=== PATIENT | male | born 2000 | race Caucasian/White ===

== ENCOUNTER 2025-04-25 20:58 | Emergency (ER) | payer SELFPAY ==
[2025-04-25 21:02] VITALS: BP 150/84; PULSE 106; RESP 22; TEMP 37; O2SAT 98; BMI 34.0
--- NOTE | 2025-04-25 21:09 | EKG_ITS ---
[facility] Test Date: 2025-04-25 Pat Name: JARRED OCONNOR Department: Room: - Gender: Male Continuous Improvement Black Belt: : 2000 Requested By: ED Temporary Provider Order Number: [id number] Reading MD: ED Temporary Provider Measurements Intervals [place] Rate: 105 P: 51 AK: 134 QRS: 82 QRSD: 102 T: 7 QT: 323 QTc: 427 Interpretive Statements SINUS TACHYCARDIA ABNORMAL RHYTHM ECG No previous ECG available for comparison /store/S0/[id number].pdf
--- NOTE | 2025-04-25 21:25 | PD.EDRECHK ---
ED Recheck Abnl Lab Rx-RME/HPI General Chief Complaint: General Adult/Misc Complain Stated Complaint: ADVERS MED REACTION IM STERROID Time Seen by Provider: 04/25/25 21:29 Arrival date/time: 04/25/25 20:58 RME / HPI RME / HPI narrative: This section includes all my notes and documentations, including HPI, PE, and ED course. 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 No other complaints. ROS: All negative except as documented in HPI. Physical Exam: General: Alert and oriented. Severely anxious. Eyes: Conjunctivae and lids clear. ENT: No nasal congestion. Neck: Supple. Heart: Sinus tachycardia noted. Lungs: No respiratory distress. Good air movement. No rhonchi, wheezing, rales. Skin: Warm and dry. Neuro: Alert and oriented X 3. I reviewed all diagnostic test results. My interpretation of the EKG is sinus tachycardia with nonspecific ST-T changes. My interpretation of the chest x-ray is NAD. Blood tests are unremarkable, including negative troponin/D-dimer/BNP. At this point, diagnoses include palpitations due to steroid. Treatment here included Xanax. Significant improvement noted. Recommended discontinuing steroid injections. Based on my best medical judgment, made decision no further evaluation or treatment indicated at this time. Patient understands and agrees to the discharge instructions customized and printed, see below. Discharge instructions from Dr. Patel: 1. After extensive evaluation, there is no life-threatening condition. Such as heart attack or pulmonary embolism (blood clots in your lungs) or pneumothorax (collapsed lung). 2. Your symptoms probably due to steroids. 3. Avoid illegal steroids. 4. See a private doctor on 04/26/2025 if not completely better. To make sure there is no serious underlying heart condition, ask to help you get more tests for your heart that cannot be done here in the ER. Such as Holter Monitor (cardiac monitoring at home from a day to even a month), heart stress test (on treadmill or with medication), echocardiogram (imaging of your heart structures), heart catherization (checking for blockages in your heart arteries), and a referral to see a [employer]. 5. Seek immediate medical care with worsening or with any concerns. Luis Patel MD Related Data Previous Rx's ?Medication ?Instructions ?Recorded prednisone 50 mg tablet 50 mg PO QDAY #5 tabs 03/14/24 alprazolam 0.5 mg tablet (Xanax) 0.5 mg PO BID PRN anxiety #10 tabs 04/25/25 Allergies Allergy/AdvReac Type Severity Reaction Status Date / Time No Known Allergies Allergy Verified 04/25/25 21:08 Review of Systems Review of Systems Systems Reviewed: All systems reviewed, normal except as documented Past Medical History Social History SMOKING STATUS: Current every day smoker ED Exam Narrative Physical exam: As noted in HPI. Course Quality Measures none Orders Category Date Time Status EKG (ED ONLY) *Do not use* NOW Care 04/25/25 21:09 Completed EKG (ED Only) Stat Exams 04/25/25 21:09 Draft XR chest 1V portable Stat Exams 04/25/25 21:30 Completed BMP [Basic Metabolic Panel] Stat Lab 04/25/25 21:43 Completed BNP [B-Type Natriuretic Peptide] Stat Lab 04/25/25 21:43 Received CBC Stat Lab 04/25/25 21:43 Completed D-Dimer Stat Lab 04/25/25 21:43 Completed Magnesium Stat Lab 04/25/25 21:43 Completed Troponin I Stat Lab 04/25/25 21:43 Completed ALPRazoLAM [Xanax] Med 04/25/25 21:29 Discontinued 0.75 mg PO X1 ONE Vital Signs Vital signs: Vital Signs Temperature 98.6 F 04/25/25 21:02 Pulse Rate 106 H 04/25/25 21:02 Respiratory Rate 22 H 04/25/25 21:02 Blood Pressure 150/84 H 04/25/25 21:02 Pulse Oximetry (%) 98 04/25/25 21:02 Oxygen Delivery Method Room Air 04/25/25 21:02 Recheck / Abnormal Lab / Rx MDM Narrative MDM Narrative:: 24yo male here with chest pain, palpitations, and 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 After injecting himself with IM steroid. No other complaints. Patient data External records reviewed:: [facility] previous records (Per chart review, patient has no relevant previous ED visits.) Clinical information provided by:: patient Social determinants that could affect healthcare access:: none Patient has the following chronic illnesses:: none How is presenting disease/condition affected by chronic disease/condition?: no chronic disease Evaluation data The following diagnostics were reviewed and interpreted by me:: lab results, radiology exam(s) and EKG tracing(s) (My interpretation of the EKG is: Sinus rhythm (105 bpm) with nonspecific ST-T changes. Luis Patel MD) Lab and/or radiology exams considered but not ordered:: none Interpretation Summary: I reviewed all diagnostic test results. My interpretation of the EKG is sinus tachycardia with nonspecific ST-T changes. My interpretation of the chest x-ray is NAD. Blood tests are unremarkable, including negative troponin/D-dimer/BNP. Medications / Prescriptions Medications or Prescriptions considered but not ordered:: none Medication administrations:: Medication Administration History Discontinued Medications Alprazolam (Alprazolam 0.25 Mg Tablet) 0.75 mg PO X1 ONE Stop: 04/25/25 21:30 Last Admin: 04/25/25 21:46 Dose: 0.75 mg Documented By: EF Xanax Consultations Consultation(s) initiated? (list below): No Diagnosis Recheck Differential Diagnosis: other (AR, PE, CHF, pneumonia, anxiety) Most likely diagnosis given after review of the tests above:: Palpitations due to steroid. Admission Indicated Admission indicated?: not indicated Explain why admission is indicated or not indicated:: With significant improvement and no condition needing emergent intervention, there was no indication for admission. Admission Request Was there a request for admission?: No Disposition Plan Disposition Plan: Discharge Discharge Attestation Discharge Attestation: The patient and all family members were given an opportunity to ask questions and understood the discharge instructions. Discharge instructions specifically effects, indications for sooner follow up or return to the emergency department, and the expected course of current diagnosis. Patient condition: Stable Discharge Plan Plan Patient Disposition: HOME (Self Care) Prescriptions/Referrals Prescriptions/Med Rec: New alprazolam [Xanax] 0.5 mg tablet 0.5 mg PO BID PRN (Reason: anxiety) Qty: 10 0RF No Action prednisone 50 mg tablet 50 mg PO QDAY Qty: 5 0RF Referrals: No Primary/Family,Physician [Primary Care Provider] - In 1 week Problem List Clinical Impression: Palpitations Patient/Caregiver Discharge Instructions Discharge Activity: activity as tolerated Education Materials: ED Palpitations Additional Instructions: Discharge instructions from Dr. Patel: 1. After extensive evaluation, there is no life-threatening condition.? Such as heart attack or pulmonary embolism (blood clots in your lungs) or pneumothorax (collapsed lung). 2. Your symptoms probably due to steroids. 3. Avoid illegal steroids. 4. See a private doctor on 04/26/2025 if not completely better. To make sure there is no serious underlying heart condition, ask to help you get more tests for your heart that cannot be done here in the ER.? Such as Holter Monitor (cardiac monitoring at home from a day to even a month), heart stress test (on treadmill or with medication), echocardiogram (imaging of your heart structures), heart catherization (checking for blockages in your heart arteries), and a referral to see a [employer]. 5. Seek immediate medical care with worsening or with any concerns.?? Print Language: Chinese Stand Alone Forms: Theresa Award Info., Patient Portal Info Letter
--- NOTE | 2025-04-25 21:30 | XR_ITS ---
Examination: PA chest single view TECHNIQUE: Upright PA chest single view Date and time: April 25, 2025 2137 hours INDICATIONS: Shortness of breath today. FINDINGS: Normal heart size. Lungs are clear. The osseous structures are intact IMPRESSION: No active disease.
[2025-04-25 21:51] LABS: Basophils # (Auto) 0.1 Thou/mm3 (0.0-0.2); Basophils % (Auto) 1 % (0-2.5); Eosinophils # (Auto) 0.3 Thou/mm3 (0.0-0.5); Eosinophils % (Auto) 4 % (0-10); Hematocrit 47.3 % (41.0-53.0); Hemoglobin 17.5 g/dL (13.5-16.0); Immature Granulocytes Auto 0.01 Thou/mm3 (0.00-0.00); Lymphocytes # (Auto) 1.8 Thou/mm3 (1.0-4.8); Lymphocytes % (Auto) 22 % (10-50); Mean Corpuscular HGB Conc 37.0 g/dl (31.0-37.0); Mean Corpuscular Hemoglobin 31.1 pg (25.0-35.0); Mean Corpuscular Volume 84 fL (80-100); Monocytes # (Auto) 0.7 Thou/mm3 (0.0-0.8); Monocytes % (Auto) 8 % (0-12); Neutrophils # (Auto) 5.1 Thou/mm3 (1.8-7.7); Neutrophils % (Auto) 65 % (37-80); Nucleated Red Blood Cell # 0.00 Thou/mm3 (0.00-0.00); Nucleated Red Blood Cell % 0 /100 WBC (0); Platelet Count 237 Thou/mm3 (140-440); RDW Standard Deviation 37.6 fL (35.1-43.9); Red Blood Count 5.63 Miln/mm3 (4.50-5.90); White Blood Count 7.9 Thou/mm3 (3.8-10.6)
[2025-04-25 22:13] LABS: Anion Gap 9 (7-16); BUN/Creatinine Ratio 9 Ratio (12-20); Blood Urea Nitrogen 12 mg/dL (9-23); Calcium 10.0 mg/dL (8.3-10.6); Carbon Dioxide 26.8 mMol/L (20.0-31.0); Chloride 104 mMol/L (98-107); Creatinine (Component) 1.4 mg/dL (0.6-1.3); Estimated Creatinine Clearance 117.4 mL/min (>60); Glucose 94 mg/dL (74-106); Magnesium 2.1 mg/dL (1.6-2.6); Osmolality,Calculated 279 (275-295); Potassium 4.4 mMol/L (3.4-5.1); Sodium 140 mMol/L (136-145); Troponin I < 0.020 ng/mL (0.0-0.045); eGFR > 60 See Note
[2025-04-25 23:11] LABS: D-Dimer 277 ng/mL (<600)
[2025-04-26 00:06] LABS: B-Type Natriuretic Peptide < 20 pg/mL (0-100)
== END 2025-04-25 23:26 | disposition home or self-care (01) ==
PROVIDERS: Emergency Provider Emergency Medicine
DX: R00.2 Palpitations (principal); R06.02 Shortness of breath; R00.0 Tachycardia, unspecified
CPT/HCPCS: 36415; 71045; 80048; 83735; 83880; 84484; 85025; 85379; 93005; 99283; A9270

== ENCOUNTER 2025-06-02 01:51 | Emergency (ER) | payer SELFPAY ==
[2025-06-02 01:51] VITALS: BMI 35.3
--- NOTE | 2025-06-02 02:22 | EKG_ITS ---
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
[2025-06-02 02:36] VITALS: BP 123/75; PULSE 81; RESP 18; TEMP 36.8; O2SAT 98
--- NOTE | 2025-06-02 02:48 | XR_ITS ---
Examination: CT abdomen and pelvis without contrast. Coronal 3-D reconstructions. Sagittal 2-D reconstructions. Date and time of exam: June 02, 2025, 0404 hours INDICATIONS: Abdominal pain and flank pain beginning 2 hours ago, history kidney stones. CTDI: vol (mGy): 12.11 DLP: (mGycm): 817 Technique: Axial images of the abdomen have been obtained, 3 mm slice thickness Intravenous contrast material has not been administered. Low dose protocols were performed. One or more of the following dose reduction techniques were used; automated exposure control, adjustment of the mA and/or KV according to patient size, use of iterative reconstruction technique. Findings: No focal liver or splenic lesions No gallstones No pancreatic edema Moderate renal scarring Minimal left hydronephrosis 5 mm proximal left ureteral calculus Aorta normal size. Normal appendix Contracted urinary bladder Intact osseous structures IMPRESSION: Minimal left hydronephrosis, 5 mm proximal left ureteral calculus
--- NOTE | 2025-06-02 02:49 | PD.EDRME ---
Rapid Medical Screening Exam RME Arrival date/time: 06/02/25 01:51 This is a case of 24-year-old male who came in in the emergency room due to left-sided abdominal pain radiating to the left flank with shortness of breath for 2 days worsening symptoms this patient decided to sought consult here in the emergency room Chief Complaint: Abdominal Pain Time Seen by Provider: 06/02/25 02:48 Vital signs: Vital Signs Temperature 98.2 F 06/02/25 02:36 Pulse Rate 81 06/02/25 02:36 Respiratory Rate 18 06/02/25 02:36 Blood Pressure 123/75 06/02/25 02:36 Pulse Oximetry (%) 98 06/02/25 02:36 Oxygen Delivery Method Room Air 06/02/25 02:36
[2025-06-02] MEDS: KETOROLAC INJ 60 MG/2 ML VIAL 30 MG IM (03:06)
[2025-06-02] MEDS: HYDROcodone/APAP 5/325 TABLET 1 TAB PO (03:07)
[2025-06-02 03:14] LABS: Basophils # (Auto) 0.1 Thou/mm3 (0.0-0.2); Basophils % (Auto) 1 % (0-2.5); Eosinophils # (Auto) 0.1 Thou/mm3 (0.0-0.5); Eosinophils % (Auto) 2 % (0-10); Hematocrit 47.2 % (41.0-53.0); Hemoglobin 16.9 g/dL (13.5-16.0); Immature Granulocytes Auto 0.03 Thou/mm3 (0.00-0.00); Lymphocytes # (Auto) 1.6 Thou/mm3 (1.0-4.8); Lymphocytes % (Auto) 19 % (10-50); Mean Corpuscular HGB Conc 35.8 g/dl (31.0-37.0); Mean Corpuscular Hemoglobin 30.0 pg (25.0-35.0); Mean Corpuscular Volume 84 fL (80-100); Monocytes # (Auto) 0.5 Thou/mm3 (0.0-0.8); Monocytes % (Auto) 6 % (0-12); Neutrophils # (Auto) 5.9 Thou/mm3 (1.8-7.7); Neutrophils % (Auto) 72 % (37-80); Nucleated Red Blood Cell # 0.00 Thou/mm3 (0.00-0.00); Nucleated Red Blood Cell % 0 /100 WBC (0); Platelet Count 203 Thou/mm3 (140-440); RDW Standard Deviation 35.8 fL (35.1-43.9); Red Blood Count 5.64 Miln/mm3 (4.50-5.90); White Blood Count 8.2 Thou/mm3 (3.8-10.6)
[2025-06-02] MEDS: ONDANSETRON ODT 4 MG TABRAP PO (03:27)
[2025-06-02 03:33] LABS: B-Type Natriuretic Peptide < 20 pg/mL (0-100)
[2025-06-02 03:36] LABS: Alanine Aminotransferase 47 U/L (10-49); Albumin, Serum 4.8 gm/dL (3.5-5.0); Albumin/Globulin Ratio 2.2 (1.2-2.2); Alkaline Phosphatase 68 U/L (46-116); Anion Gap 13 (7-16); Aspartate Amino Transferase 19 U/L (0-34); BUN/Creatinine Ratio 11 Ratio (12-20); Bilirubin,Total 0.9 mg/dL (0.3-1.2); Blood Urea Nitrogen 14 mg/dL (9-23); Calcium 10.3 mg/dL (8.3-10.6); Calcium (Corrected) 10.3 mg/dL (8.5-10.1); Carbon Dioxide 23.8 mMol/L (20.0-31.0); Chloride 103 mMol/L (98-107); Creatinine (Component) 1.3 mg/dL (0.6-1.3); Estimated Creatinine Clearance 128.6 mL/min (>60); Globulin 2.2 gm/dL (2.3-3.5); Glucose 119 mg/dL (74-106); Lipase 33 U/L (12-53); Osmolality,Calculated 280 (275-295); Potassium 3.8 mMol/L (3.4-5.1); Sodium 140 mMol/L (136-145); Total Protein 7.0 gm/dL (5.7-8.2); Troponin I < 0.020 ng/mL (0.0-0.045); eGFR > 60 See Note
[2025-06-02 04:42] LABS: Collection Type, Urine Clean Catch
[2025-06-02 04:48] LABS: Bilirubin,Urine Negative (Negative); Blood,Urine 3+ (Negative); Calcium Oxalate Crystals,Urine 2+; Clarity,Urine Turbid (Clear/Hazy); Glucose, Urine Negative (Negative); Ketones,Urine 1+ (Negative); Leukocyte Esterase,Urine Positive (Negative); Nitrite,Urine Negative (Negative); PH,Urine 6.0 (5.0-7.0); Protein,Urine 2+ (Neg - Trace); RBC,Urine 638 /hpf (0-3); Specific Gravity,Urine 1.032 (1.001-1.035); Squamous Epithelial Cell,Urine < 1 /hpf (0-5); Urobilinogen,Urine Negative mg/dL (0.0-1.0); WBC,Urine 23 /hpf (0-5)
--- NOTE | 2025-06-02 04:59 | PRELIM_ITS ---
CT scan of the abdomen and pelvis without intravenous contrast (axial sections with sagittal and coronal reformats) June 02, 2025 0404 hours Clinical History: Kidney stones. Comparison: No prior study is available for comparison. Findings: The lung bases are clear. Liver, gallbladder, spleen, adrenal glands, pancreas and right kidney are unremarkable. Mild left hydroureteronephrosis. 5 mm calculus at the proximal left ureter, (image 121). No renal calculi bilaterally. The appendix is normal, best seen on (image 162). The urinary bladder is decompressed, limiting evaluation. No free intraperitoneal air or fluid. Bowel caliber is normal. The abdominal wall is unremarkable. No acute osseous process. Impression: 5 mm calculus in the proximal left ureter with mild hydroureteronephrosis. Report Electronically Signed By: Janusz Dixon 06/02/2025 4:58:43 AM [EST]
[2025-06-02 05:01] LABS: Color,Urine Lt-Orange (Lt Yel-Yel)
[2025-06-02 05:56] VITALS: BP 137/82; PULSE 66; RESP 20; TEMP 36.9; O2SAT 100
[2025-06-02 07:37] VITALS: BP 129/69; PULSE 67; RESP 18; TEMP 36.7; O2SAT 98
--- NOTE | 2025-06-02 08:15 | EDNOTE_ITS ---
ED Abdominal Pain RME/HPI General Chief Complaint: Abdominal Pain Stated complaint: SOB, ABD PAIN X 2 HOURS Time seen by provider: 06/02/25 02:48 Arrival date/time: 06/02/25 01:51 Limitations: no limitations RME / HPI RME / HPI narrative: 06/02/25 01:51 This is a case of 24-year-old male who came in in the emergency room due to left-sided abdominal pain radiating to the left flank with shortness of breath for 2 days worsening symptoms this patient decided to sought consult here in the emergency room DR. CORNELIUS PARR ED EVALUATION 24 year old male presents to the ED for evaluation of left flank and left sided abdominal pain beginning 2 hours prior to arrival. Described as colicky in sensation, rating as severe. Accompanied by nausea when pain is at its worst. Denies fevers, chills, chest pain, cough, shortness of breath, or urinary symptoms. No other associated symptoms reported. Related Data Previous Rx's ?Medication ?Instructions ?Recorded prednisone 50 mg tablet 50 mg PO QDAY #5 tabs alprazolam 0.5 mg tablet (Xanax) 0.5 mg PO BID PRN anx iety #10 tabs 04/25/25 hydrocodone 5 mg-acetaminophen 325 1 tab PO Q6H PRN pa in #10 tabs 06/02/25 mg tablet ibuprofen 600 mg tablet 600 mg PO Q6H PRN Renal coli c 5 06/02/25 days #20 tabs Allergies Allergy/AdvReac Type Severity Reaction Status Date / Time No Known Allergies Allergy Verified 04/25/25 21:08 Review of Systems Review of Systems Systems Reviewed: All systems reviewed, normal except as documented Past Medical History Past Medical History CARDIAC: Negative Congestive Heart Failure RESPIRATORY: Negative Chronic Obstructive Pulmonary Disease (COPD) GENITOURINARY: Negative Renal Disease ENDOCRINE: Negative Diabetes Mellitus Type 1 or Diabetes Mellitus Type 2 Social History SMOKING STATUS: Never smoker ED Exam General Limitations: Present no limitations General appearance: Present alert and in no apparent distress Head Head exam: Present atraumatic and normocephalic Eye Eye exam: Present normal appearance, PERRL and EOMI ENT ENT exam: Present normal exam, normal oropharynx and mucous membranes moist Neck Neck exam: Present normal inspection, full ROM and trachea midline Chest Chest inspection: Present normal inspection and symmetric chest wall rise Respiratory Respiratory exam: Present normal lung sounds bilaterally Cardiovascular Cardiovascular exam: Present regular rate, normal rhythm and normal heart sounds Abdominal Exam Abdominal exam: Present soft and normal bowel sounds Extremities Exam Extremities exam: Present normal inspection and full ROM Back Exam Back exam: Present CVA tenderness (L) (mild ) Neurological Exam Neurological exam: Present alert, oriented X3 and CN II-XII intact Psychiatric Psychiatric exam: Present normal affect and normal mood Skin Skin exam: Present warm, dry, intact and normal color Course Quality Measures none Orders Category Date Time Status EKG (ED ONLY) *Do not use* NOW Care 06/02/25 02:[address] abdomen pelvis wo con Stat Exams 06/02/25 02:48 Completed EKG (ED Only) Stat Exams 06/02/25 02:22 Draft BNP [B-Type Natriuretic Peptide] Stat Lab 06/02/25 02:54 Completed CBC Stat Lab 06/02/25 02:54 Completed Comprehensive Metabolic Panel Stat Lab 06/02/25 02:54 Completed Lipase Stat Lab 06/02/25 02:54 Completed Troponin I Stat Lab 06/02/25 02:54 Completed Urinalysis Stat Lab 06/02/25 03:46 Completed HYDROcodone*/APAP 5/325 [[place] 5/325] Med 06/02/25 02:48 Discontinued 1 tab PO X1 ONE Ketorolac Inj [Toradol Inj] Med 06/02/25 02:48 Discontinued 30 mg IM X1 ONE Ondansetron Odt [Zofran Odt] Med 06/02/25 03:08 Discontinued 4 mg PO X1 ONE Ondansetron Odt [Zofran Odt] Med 06/02/25 03:18 Discontinued 4 mg PO X1 ONE Vital Signs Vital signs: Vital Signs Temperature 98.2 F 06/02/25 02:36 Pulse Rate 81 06/02/25 02:36 Respiratory Rate 18 06/02/25 02:36 Blood Pressure 123/75 06/02/25 02:36 Pulse Oximetry (%) 98 06/02/25 02:36 Oxygen Delivery Method Room Air 06/02/25 02:36 Pulse ox is 98% on room air which is adequate. Abdominal Pain MDM MDM Narrative MDM Narrative:: Lizbet Rehman am scribing for and in the presence of Dr. Gilbert. Patient data External records reviewed:: [facility] previous records (I reviewed ED visit on 04/25/2025 ) Clinical information provided by:: patient Social determinants that could affect healthcare access:: none Patient has the following chronic illnesses:: None reported How is presenting disease/condition affected by chronic disease/condition?: no chronic disease Evaluation data The following diagnostics were reviewed and interpreted by me:: lab results, radiology exam(s) and EKG tracing(s) Lab and/or radiology exams considered but not ordered:: None Interpretation Summary: Ordering Physician: Edmond Jj Date of Service: 06/02/25 Procedure(s): CT abdomen pelvis wo con Accession Number(s): [id number] cc: Americo Amador MD; Fausto Gaines MD; Edmond Jj~ Examination: CT abdomen and pelvis without contrast. Coronal 3-D reconstructions. Sagittal 2-D reconstructions. Date and time of exam: June 02, 2025, 0404 hours INDICATIONS: Abdominal pain and flank pain beginning 2 hours ago, history kidney stones. CTDI: vol (mGy): 12.11 DLP: (mGycm): 817 Technique: Axial images of the abdomen have been obtained, 3 mm slice thickness Intravenous contrast material has not been administered. Low dose protocols were performed. One or more of the following dose reduction techniques were used; automated exposure control, adjustment of the mA and/or KV according to patient size, use of iterative reconstruction technique. Findings: No focal liver or splenic lesions No gallstones No pancreatic edema Moderate renal scarring Minimal left hydronephrosis 5 mm proximal left ureteral calculus Aorta normal size. Normal appendix Contracted urinary bladder Intact osseous structures IMPRESSION: Minimal left hydronephrosis, 5 mm proximal left ureteral calculus Dictated By: Fausto Gaines MD Signed By: <Electronically signed by Fausto Gaines MD in OV> 06/02/25 0647 Medications / Prescriptions Medications or Prescriptions considered but not ordered:: None Medication administrations:: Medication Administration History Discontinued Medications Hydrocodone Bitart/Acetaminophen (Hydrocodone/Apap 5/325 Tablet) 1 tab PO X1 ONE Stop: 06/02/25 02:49 Last Admin: 06/02/25 03:07 Dose: 1 tab Documented By: CB Ketorolac Tromethamine (Ketorolac Inj 60 Mg/2 Ml Vial) 30 mg IM X1 ONE Stop: 06/02/25 02:49 Last Admin: 06/02/25 03:06 Dose: 30 mg Documented By: MAISHA Ondansetron HCl (Ondansetron Odt 4 Mg Tabrap) 4 mg PO X1 ONE; Protocol Stop: 06/02/25 03:09 Last Admin: 06/02/25 03:29 Dose: Not Given Documented By: MAISHA Non-Admin Reason: Duplicate Medication on eMAR Ondansetron HCl (Ondansetron Odt 4 Mg Tabrap) 4 mg PO X1 ONE; Protocol Stop: 06/02/25 03:19 Last Admin: 06/02/25 03:27 Dose: 4 mg Documented By: MAISHA See above Consultations Consultation(s) initiated? (list below): No Diagnosis Differential diagnosis abdominal pain: abdominal pain, calculus of kidney, gastroenteritis and pancreatitis Most likely diagnosis given after review of the tests above:: Kidney stone Admission Indicated Admission indicated?: not indicated Admission Request Was there a request for admission?: No Disposition Plan Disposition Plan: Discharge Discharge Attestation Discharge Attestation: The patient and all family members were given an opportunity to ask questions and understood the discharge instructions. Discharge instructions specifically effects, indications for sooner follow up or return to the emergency department, and the expected course of current diagnosis. Patient condition: Stable Discharge Plan Plan Patient Disposition: HOME (Self Care) Prescriptions/Referrals Prescriptions/Med Rec: New ibuprofen 600 mg tablet 600 mg PO Q6H PRN (Reason: Renal colic) 5 Days Qty: 20 0RF Rx Instructions: Patient no longer takes prednisone hydrocodone-acetaminophen 5-325 mg tablet 1 tab PO Q6H MDD 4 tabs PRN (Reason: pain) Qty: 10 0RF No Action prednisone 50 mg tablet 50 mg PO QDAY Qty: 5 0RF alprazolam [Xanax] 0.5 mg tablet 0.5 mg PO BID PRN (Reason: anxiety) Qty: 10 0RF Referrals: Sridhar Giles MD [Physician] - In 1 week Americo Amador MD [Primary Care Provider] - In 1 week Problem List Clinical Impression: Renal colic Patient/Caregiver Discharge Instructions Discharge Activity: activity as tolerated Diet Instructions: No restrictions Education Materials: Anatomy of the Male Urinary Tract, ED Kidney Stone w/ Colic Additional Instructions: Today you were seen in the emergency department for left back and left-sided abdominal pain. Our tests show that you have a left-sided kidney stone which is about 5 mm. The stone is in the proximal left ureter. I have given you the contact information for Dr. Giles. He is a urologist who is a specialist with kidney stones. Please give his office a call and make a follow-up appointment for sometime in the next several days Please return to the emergency department if you have any worsening or any further medical problems we will help you. Otherwise you should follow-up with your primary care doctor within the next several days Print Language: Emirati Stand Alone Forms: Theresa Award Info., Patient Portal Info Letter
== END 2025-06-02 09:22 | disposition home or self-care (01) ==
PROVIDERS: Nurse Practitioner Family; Emergency Provider Emergency Medicine; PCP Family Medicine
DX: N13.2 Hydronephrosis with renal and ureteral calculous obstruction (principal)
CPT/HCPCS: 36415; 74176; 80053; 81001; 83690; 83880; 84484; 85025; 93005; 96372; 99283; J1885; Q0162; A9270

== ENCOUNTER 2025-06-04 02:36 | Observation (INO) | payer SELFPAY ==
[2025-06-04] VITALS (8 sets, daily range): BP systolic 98–155; BP diastolic 58–97; PULSE 54–100; RESP 16–97; TEMP 36.6–37; O2SAT 96–99; BMI 39.3; BMI 34.5
--- NOTE | 2025-06-04 03:00 | XR_ITS ---
Examination: CT abdomen and pelvis without contrast. Coronal 3-D reconstructions. Sagittal 2-D reconstructions. Date and time of exam:June 04, 2025, 0404 hours. INDICATIONS: Left flank pain nausea vomiting to be in a 2 days ago, history 5 mm left ureteral calculus on CT stone study June 02, 2025 CTDI: vol (mGy): 12.9 DLP: (mGycm): 845 Technique: Axial images of the abdomen have been obtained, 3 mm slice thickness Intravenous contrast material has not been administered. Low dose protocols were performed. One or more of the following dose reduction techniques were used; automated exposure control, adjustment of the mA and/or KV according to patient size, use of iterative reconstruction technique. Findings: No focal liver or splenic lesions No gallstones No pancreatic or adrenal mass Mild to moderate renal scar formation Mild left hydronephrosis, 4 mm proximal left ureteral calculus No bowel obstruction Normal appendix Intact urinary bladder Osseous structures intact IMPRESSION: Mild left hydronephrosis, 4 mm proximal left ureteral calculus
[2025-06-04] MEDS: KETOROLAC INJ 30 MG/ML VIAL IVP (03:09)
[2025-06-04] MEDS: MORPHINE SULF INJ 10 MG/ML VIAL 4 MG IVP (03:09)
[2025-06-04] MEDS: SODIUM CHLORIDE 0.9% 1000 ML 1,000 ML 999 ML IV (03:10)
[2025-06-04] MEDS: ONDANSETRON INJ 2 MG/ML INJ 2 ML 4 MG IVP (03:10)
--- NOTE | 2025-06-04 05:01 | PRELIM_ITS ---
CT scan of the abdomen and pelvis without intravenous contrast (axial sections with sagittal and coronal reformats) June 04, 2025 0404 hours Clinical History: Kidney stone Comparison: No prior study is available for comparison. Findings: The lung bases are clear. There is a 4 X 3 mm obstructing calculus in the left proximal ureter (axial [id number] ) causing mild hydroureteronephrosis and periureteric/perinephric fat stranding. The liver, gallbladder, pancreas, spleen, kidneys and adrenals are unremarkable on this noncontrast study. No evidence of bowel obstruction. The appendix is within normal limits (images [id number]). There is no mesenteric or retroperitoneal adenopathy. The urinary bladder is incompletely distended at the time of the examination and appears mildly thick walled. There is no free fluid or free air. The osseous structures are unremarkable. Impression: 4 X 3 mm obstructing calculus in the left proximal ureter causing mild hydroureteronephrosis. Other findings as described above. Report Electronically Signed By: Vinnie Gonzalez 06/04/2025 5:00:52 AM [EST]
[2025-06-04 05:12] LABS: Basophils # (Auto) 0.0 Thou/mm3 (0.0-0.2); Basophils % (Auto) 0 % (0-2.5); Eosinophils # (Auto) 0.1 Thou/mm3 (0.0-0.5); Eosinophils % (Auto) 1 % (0-10); Hematocrit 45.3 % (41.0-53.0); Hemoglobin 16.3 g/dL (13.5-16.0); Immature Granulocytes Auto 0.02 Thou/mm3 (0.00-0.00); Lymphocytes # (Auto) 1.1 Thou/mm3 (1.0-4.8); Lymphocytes % (Auto) 11 % (10-50); Mean Corpuscular HGB Conc 36.0 g/dl (31.0-37.0); Mean Corpuscular Hemoglobin 30.4 pg (25.0-35.0); Mean Corpuscular Volume 84 fL (80-100); Monocytes # (Auto) 0.7 Thou/mm3 (0.0-0.8); Monocytes % (Auto) 7 % (0-12); Neutrophils # (Auto) 8.4 Thou/mm3 (1.8-7.7); Neutrophils % (Auto) 81 % (37-80); Nucleated Red Blood Cell # 0.00 Thou/mm3 (0.00-0.00); Nucleated Red Blood Cell % 0 /100 WBC (0); Platelet Count 181 Thou/mm3 (140-440); RDW Standard Deviation 35.7 fL (35.1-43.9); Red Blood Count 5.37 Miln/mm3 (4.50-5.90); White Blood Count 10.3 Thou/mm3 (3.8-10.6)
[2025-06-04 05:31] LABS: Alanine Aminotransferase 27 U/L (10-49); Albumin, Serum 4.5 gm/dL (3.5-5.0); Albumin/Globulin Ratio 2.0 (1.2-2.2); Alkaline Phosphatase 65 U/L (46-116); Anion Gap 13 (7-16); Aspartate Amino Transferase 13 U/L (0-34); BUN/Creatinine Ratio 10 Ratio (12-20); Bilirubin,Total 0.8 mg/dL (0.3-1.2); Blood Urea Nitrogen 14 mg/dL (9-23); Calcium 9.9 mg/dL (8.3-10.6); Calcium (Corrected) 9.9 mg/dL (8.5-10.1); Carbon Dioxide 23.2 mMol/L (20.0-31.0); Chloride 105 mMol/L (98-107); Creatinine (Component) 1.4 mg/dL (0.6-1.3); Estimated Creatinine Clearance 113.1 mL/min (>60); Globulin 2.2 gm/dL (2.3-3.5); Glucose 91 mg/dL (74-106); Osmolality,Calculated 281 (275-295); Potassium 4.0 mMol/L (3.4-5.1); Sodium 141 mMol/L (136-145); Total Protein 6.7 gm/dL (5.7-8.2); eGFR > 60 See Note
--- NOTE | 2025-06-04 05:46 | PD.EDRME ---
Rapid Medical Screening Exam RME Arrival date/time: 06/04/25 02:36 This is a case of 24-year-old male with history of kidney stone came in in the emergency room due to left flank pain radiating to left lower abdomen with nausea vomiting for 3 days patient was seen here 06/01/2025 and treated with renal colic and kidney stone due to worsening of the pain this patient decided to start consult here in the emergency room Chief Complaint: Urogenital-Male Time Seen by Provider: 06/04/25 02:59 Vital signs: Vital Signs Temperature 98.6 F 06/04/25 02:54 Pulse Rate 80 06/04/25 02:54 Respiratory Rate 18 06/04/25 02:54 Blood Pressure 155/97 H 06/04/25 02:54 Pulse Oximetry (%) 97 06/04/25 02:54 Oxygen Delivery Method Room Air 06/04/25 02:54
[2025-06-04] MEDS: TAMSULOSIN HCL 0.4 MG CAPSULE PO (05:49)
[2025-06-04 05:56] LABS: Collection Type, Urine Voided; Squamous Epithelial Cell,Urine 0 /hpf (0-5)
[2025-06-04 06:10] LABS: Bacteria,Urine Rare; RBC,Urine 2544 /hpf (0-3); WBC,Urine 10 /hpf (0-5)
[2025-06-04 06:38] LABS: Bilirubin,Urine Negative (Negative); Blood,Urine 3+ (Negative); Color,Urine Orange (Lt Yel-Yel); Glucose, Urine Negative (Negative); Ketones,Urine 2+ (Negative); Leukocyte Esterase,Urine Positive (Negative); Nitrite,Urine Negative (Negative); PH,Urine 5.5 (5.0-7.0); Protein,Urine 2+ (Neg - Trace); Specific Gravity,Urine 1.028 (1.001-1.035); Urobilinogen,Urine Negative mg/dL (0.0-1.0)
[2025-06-04 06:40] LABS: Clarity,Urine Turbid (Clear/Hazy)
--- NOTE | 2025-06-04 07:49 | EDNOTE_ITS ---
ED Male Genitalurinary RME/HPI General Chief complaint: Urogenital-Male Stated complaint: FLANK PAIN, N/V, HX KIDNEY STONES Time Seen by Provider: 06/04/25 02:59 Arrival date/time: 06/04/25 02:36 Limitations: no limitations RME / HPI RME / HPI Narrative: 06/04/25 02:36 This is a case of 24-year-old male with history of kidney stone came in in the emergency room due to left flank pain radiating to left lower abdomen with nausea vomiting for 3 days patient was seen here 06/01/2025 and treated with renal colic and kidney stone due to worsening of the pain this patient decided to start consult here in the emergency room DR. VELVET PARR ED EVALUATION 24 year old male who was recently diagnosed with a 4mm kidney stone during recent ED visit here (06/02) returns to the emergency department for flank pain and gross hematuria. Reports he has had difficulty managing pain with [place] and Ibuprofen at home. Pain is accompanied by nausea and vomiting. Denies fevers, chills, sweats, or difficulty urinating. Related Data Home Medications ?Medication ?Instructions ?Recorded ?Confirmed citalopram 20 mg tablet 20 mg PO QDAY 06/04/2506/04 Previous Rx's ?Medication ?Instructions ?Recorded hydrocodone 5 mg-acetaminophen 325 1 tab PO Q6H PRN pa in #10 tabs 06/02/25 mg tablet hydrocodone 7.5 mg-acetaminophen 1 tab PO Q8H PRN pain #15 tabs 06/06/25 325 mg tablet tamsulosin 0.4 mg capsule (Flomax) 0.4 mg PO QDAY #30 caps 06/06/25 Allergies Allergy/AdvReac Type Severity Reaction Status Date / Time No Known Allergies Allergy Verified 06/04/25 02:38 Review of Systems Review of Systems Systems Reviewed: All systems reviewed, normal except as documented Past Medical History Past Medical History CARDIAC: Negative Congestive Heart Failure RESPIRATORY: Negative Chronic Obstructive Pulmonary Disease (COPD) GENITOURINARY: Positive Kidney Stones; Negative Renal Disease ENDOCRINE: Negative Diabetes Mellitus Type 1 or Diabetes Mellitus Type 2 Social History SMOKING STATUS: Never smoker ED Exam General Limitations: Present no limitations General appearance: Present alert and in no apparent distress Head Head exam: Present atraumatic, normocephalic and normal inspection Eye Eye exam: Present normal appearance, PERRL and EOMI ENT ENT exam: Present normal exam, normal oropharynx and mucous membranes moist Neck Neck exam: Present normal inspection, full ROM and trachea midline Chest Chest inspection: Present normal inspection and symmetric chest wall rise Respiratory Respiratory exam: Present normal lung sounds bilaterally Cardiovascular Cardiovascular exam: Present regular rate, normal rhythm and normal heart sounds Abdominal Exam Abdominal exam: Present soft and normal bowel sounds Extremities Exam Extremities exam: Present normal inspection and full ROM Back Exam Back exam: Present normal inspection and full ROM Neurological Exam Neurological exam: Present alert, oriented X3 and CN II-XII intact Psychiatric Psychiatric exam: Present normal affect and normal mood Skin Skin exam: Present warm, dry, intact and normal color Course Quality Measures none Orders Category Date Time Status CT abdomen pelvis wo con Stat Exams 06/04/25 03:00 Completed CBC Stat Lab 06/04/25 04:42 Completed CMP [Comprehensive Metabolic Panel] Stat Lab 06/04/25 04:42 Completed Urinalysis Stat Lab 06/04/25 05:08 Completed HYDROmorphone INJ [Dilaudid Inj] Med 06/04/25 11:08 Discontinued 0.5 mg IVP X1 ONE HYDROmorphone INJ [Dilaudid Inj] Med 06/04/25 11:13 Discontinued 1 mg IVP X1 ONE Ketorolac Inj [Toradol Inj] Med 06/04/25 03:00 Discontinued 30 mg IVP X1 ONE Morphine Inj Med 06/04/25 03:00 Discontinued 4 mg IVP X1 ONE Ondansetron Inj [Zofran Inj] Med 06/04/25 03:00 Discontinued 4 mg IVP X1 ONE Sodium Chloride 0.9% 1000 ml [Ns] 1,000 ml Med 06/04/25 03:01 Discontinued IV 999 mls/hr Sodium Chloride 0.9% 500 ml [Ns] 500 ml Med 06/04/25 14:20 Discontinued IV 999 mls/hr Tamsulosin HCl [Flomax] Med 06/04/25 05:22 Discontinued 0.4 mg PO X1 ONE Vital Signs Vital signs: Vital Signs Temperature 98.6 F 06/04/25 02:54 Pulse Rate 80 06/04/25 02:54 Respiratory Rate 18 06/04/25 02:54 Blood Pressure 155/97 H 06/04/25 02:54 Pulse Oximetry (%) 97 06/04/25 02:54 Oxygen Delivery Method Room Air 06/04/25 02:54 Pulse ox is 97% on room air which is adequate. Urogenital - Male MDM Narrative MDM Narrative:: I, Lizbet Botello, am scribing for and in the presence of Dr. Almazan. Patient is a 24 yo male that is in the ED with flank pain. Patient not septic or toxic appearing. Concern for pyelo, UTI, renal colic. Ordered labs, CT, offered meds for symptom relief. Labs with evidence of acute kidney injury. CT 4mm kidney stone with hydronephrosis. 0745: I spoke with urologist Dr. Giles. Discussed patients PMHx, HPI, ED course, exam findings, labs, and radiology results. States he will review patients chart and call back. Urologist Dr. Giles has evaluated the patient in the ED and agrees to consult, recommends admission . I spoke with hospitalist team A regarding admission. Patient data External records reviewed:: [facility] previous records (I reviewed yesterdays ED visit ) Clinical information provided by:: patient Social determinants that could affect healthcare access:: none Patient has the following chronic illnesses:: None How is presenting disease/condition affected by chronic disease/condition?: no chronic disease Evaluation data The following diagnostics were reviewed and interpreted by me:: lab results and radiology exam(s) Lab and/or radiology exams considered but not ordered:: None Interpretation Summary: Ordering Physician: Date of Service: Procedure(s): Accession Number(s): cc: ~ CT scan of the abdomen and pelvis without intravenous contrast (axial sections with sagittal and coronal reformats) June 04, 2025 0404 hours Clinical History: Kidney stone Comparison: No prior study is available for comparison. Findings: The lung bases are clear. There is a 4 X 3 mm obstructing calculus in the left proximal ureter (axial [id number] ) causing mild hydroureteronephrosis and periureteric/perinephric fat stranding. The liver, gallbladder, pancreas, spleen, kidneys and adrenals are unremarkable on this noncontrast study. No evidence of bowel obstruction. The appendix is within normal limits (images [id number]). There is no mesenteric or retroperitoneal adenopathy. The urinary bladder is incompletely distended at the time of the examination and appears mildly thick walled. There is no free fluid or free air. The osseous structures are unremarkable. Impression: 4 X 3 mm obstructing calculus in the left proximal ureter causing mild hydroure teronephrosis. Other findings as described above. Report Electronically Signed By: Vinnie Gonzalez 06/04/2025 5:00:52 AM [EST] Medications / Prescriptions Medications or Prescriptions considered but not ordered:: None Medication administrations:: Medication Administration History Discontinued Medications Acetaminophen (Acetaminophen 325 Mg Tablet) 650 mg PO Q6H PRN PRN Reason: Fever >101.5 Stop: 07/04/25 14:20 Last Admin: 06/06/25 06:52 Dose: 650 mg Documented By: NIKKI Acetaminophen (Acetaminophen 325 Mg Tablet) 650 mg PO Q6H PRN PRN Reason: PAIN SCALE 1-3 (mild Stop: 07/04/25 14:20 Last Admin: 06/05/25 17:43 Dose: 650 mg Documented By: Admin: 06/04/25 22:40 Dose: 650 mg Documented By: NIKKI Albuterol/Ipratropium (Albuterol/Ipratropium (Duoneb) Rt Eleanor 3 Ml Nebu) 3 ml INH Q4HRRT PRN PRN Reason: SHORTNESS OF BREATH Stop: 07/05/25 15:06 Alprazolam (Alprazolam 0.25 Mg Tablet) 0.5 mg PO X1 ONE Stop: 06/04/25 18:25 Last Admin: 06/04/25 18:33 Dose: 0.5 mg Documented By: EDNA Citalopram Hydrobromide (Citalopram 20 Mg Tablet) 20 mg PO QDAY JULIEN Stop: 07/05/25 08:59 Last Admin: 06/06/25 08:49 Dose: 20 mg Documented By: Admin: 06/05/25 08:52 Dose: 20 mg Documented By: PATIENCE Dexamethasone Sodium Phosphate (Dexamethasone Sod Phos Inj 10 Mg/Ml Vial) Confirm Administered Dose 10 mg .ROUTE .STK-MED ONE Stop: 06/05/25 14:43 Famotidine (Famotidine Inj 10 Mg/Ml Vial 2 Ml) Confirm Administered Dose 20 mg .ROUTE .STK-MED ONE Stop: 06/05/25 14:43 Fentanyl Citrate (Fentanyl Cit Inj 50 Mcg/Ml Amp 2ml) Confirm Administered Dose 100 mcg .ROUTE .STK-MED ONE Stop: 06/05/25 14:43 Fentanyl Citrate (Fentanyl Cit Inj 50 Mcg/Ml Amp 2ml) 50 mcg IVP Q5M PRN PRN Reason: PAIN SCALE 4-6 (Moderate Stop: 06/05/25 17:07 Gentamicin Sulfate (Gentamicin Inj 40 Mg/Ml Vial 2 Ml) Confirm Administered Dose 160 mg .ROUTE .STK-MED ONE Stop: 06/05/25 14:53 Hydralazine HCl (Hydralazine Inj 20 Mg/Ml Vial) 10 mg IVP X1 ONE Stop: 06/05/25 17:07 Last Admin: 06/05/25 15:55 Dose: Not Given Documented By: TN Non-Admin Reason: patient not in room Hydromorphone HCl (Hydromorphone Inj 2 Mg/Ml Vial) 0.5 mg IVP X1 ONE Stop: 06/04/25 11:09 Last Admin: 06/04/25 11:14 Dose: Not Given Documented By: GADIEL Non-Admin Reason: Cancelled by Provider Hydromorphone HCl (Hydromorphone Inj 2 Mg/Ml Vial) 1 mg IVP X1 ONE Stop: 06/04/25 11:14 Last Admin: 06/04/25 11:17 Dose: 1 mg Documented By: GADIEL Hydromorphone HCl (Hydromorphone Inj 2 Mg/Ml Vial) 1 mg IVP X1 ONE Stop: 06/04/25 23:46 Last Admin: 06/05/25 00:03 Dose: 1 mg Documented By: NIKKI Hydromorphone HCl (Hydromorphone Inj 2 Mg/Ml Vial) 0.5 mg IVP Q10MIN PRN PRN Reason: severe pain 7-10 Stop: 06/05/25 17:08 Sodium Chloride (Ns) 1,000 mls @ 999 mls/hr IV .Q1H1M ONE Stop: 06/04/25 04:01 Last Infusion: 06/04/25 04:25 Dose: Infused Documented By: Admin: 06/04/25 03:10 Dose: 999 mls/hr Documented By: MAISHA Sodium Chloride (Ns) 500 mls @ 999 mls/hr IV .Q31M ONE Stop: 06/04/25 14:50 Last Admin: 06/04/25 16:08 Dose: Not Given Documented By: EDNA Non-Admin Reason: Wrong Time Sodium Chloride (Ns) 2,000 mls @ 150 mls/hr IV .[id number] [facility] Stop: 07/04/25 14:29 Sodium Chloride (Ns) 1,000 mls @ 150 mls/hr IV .Q6H40M [facility] Stop: 06/05/25 03:49 Last Admin: 06/05/25 00:03 Dose: 150 mls/hr Documented By: Infusion: 06/04/25 23:03 Dose: Infused Documented By: Admin: 06/04/25 16:22 Dose: 150 mls/hr Documented By: EDNA Magnesium Sulfate (Magnesium Sulfate Ivpb) 2 gm in 50 mls @ 25 mls/hr IV X1 ONE Stop: 06/05/25 09:31 Last Admin: 06/05/25 08:52 Dose: 25 mls/hr Documented By: TN Sodium Chloride (Ns) 1,000 mls @ 150 mls/hr IV .Q6H40M [facility] Stop: 07/05/25 07:38 Last Admin: 06/06/25 05:14 Dose: 150 mls/hr Documented By: Infusion: 06/06/25 05:00 Dose: Infused Documented By: Admin: 06/05/25 22:19 Dose: 150 mls/hr Documented By: Infusion: 06/05/25 15:33 Dose: Infused Documented By: Admin: 06/05/25 08:52 Dose: 150 mls/hr Documented By: TN Sodium Chloride (Ns) 1,000 mls @ 999 mls/hr IV .Q1H1M ONE Stop: 06/06/25 10:52 Ketorolac Tromethamine (Ketorolac Inj 30 Mg/Ml Vial) 30 mg IVP X1 ONE Stop: 06/04/25 03:01 Last Admin: 06/04/25 03:09 Dose: 30 mg Documented By: CB Ketorolac Tromethamine (Ketorolac Inj 30 Mg/Ml Vial) 30 mg IVP X1 ONE Stop: 06/05/25 08:08 Last Admin: 06/05/25 08:52 Dose: 30 mg Documented By: TN Ketorolac Tromethamine (Ketorolac Inj 30 Mg/Ml Vial) 30 mg IVP Q8HR PRN; Protocol PRN Reason: PAIN Stop: 06/10/25 15:52 Last Admin: 06/05/25 22:19 Dose: 30 mg Documented By: PG Labetalol HCl (Labetalol Inj 5 Mg/Ml Vial 20 Ml) 5 mg IVP Q10MIN PRN PRN Reason: SBP >180 DBP>100 or HR >100 Stop: 06/05/25 17:08 Lidocaine HCl (Lidocaine Inj Pf 2% 5 Ml Vial) Confirm Administered Dose 5 ml .ROUTE .STK-MED ONE Stop: 06/05/25 14:43 Lidocaine HCl (Lidocaine Jelly 2% (Urojet) 10 Ml Tube) Confirm Administered Dose 10 ml TOP .STK-MED ONE Stop: 06/05/25 14:51 Lidocaine HCl (Lidocaine Inj Pf 2% 5 Ml Vial) Confirm Administered Dose 5 ml .ROUTE .STK-MED ONE Stop: 06/05/25 14:51 Lidocaine HCl (Lidocaine Jelly 2% (Urojet) 10 Ml Tube) Confirm Administered Dose 10 ml TOP .STK-MED ONE Stop: 06/05/25 15:17 Melatonin (Melatonin 3 Mg Tablet) 6 mg PO X1 ONE Stop: 06/05/25 20:49 Last Admin: 06/05/25 22:19 Dose: 6 mg Documented By: PG Metoprolol Tartrate (Metoprolol Tartrate Inj 1 Mg/Ml Amp 5 Ml) 2.5 mg IVP PRN PRN PRN Reason: Heart Rate- High Stop: 06/05/25 17:08 Midazolam HCl (Midazolam Inj 1 Mg/Ml Vial 2 Ml) Confirm Administered Dose 2 mg .ROUTE .STK-MED ONE Stop: 06/05/25 14:43 Morphine Sulfate (Morphine Sulf Inj 10 Mg/Ml Vial) 4 mg IVP X1 ONE Stop: 06/04/25 03:01 Last Admin: 06/04/25 03:09 Dose: 4 mg Documented By: MAISHA Morphine Sulfate (Morphine Sulf Inj 10 Mg/Ml Vial) 1 mg IVP Q2H PRN PRN Reason: PAIN SCALE 7-10 (Severe Stop: 06/09/25 14:20 Last Admin: 06/05/25 12:18 Dose: 1 mg Documented By: Admin: 06/05/25 07:30 Dose: 1 mg Documented By: Admin: 06/05/25 05:07 Dose: 1 mg Documented By: Admin: 06/05/25 01:49 Dose: 1 mg Documented By: Admin: 06/04/25 21:55 Dose: 1 mg Documented By: Admin: 06/04/25 19:33 Dose: 1 mg Documented By: BENJAMÍN Morphine Sulfate (Morphine Sulf Inj 10 Mg/Ml Vial) 1 mg IVP X1 ONE Stop: 06/04/25 22:29 Last Admin: 06/04/25 22:38 Dose: 1 mg Documented By: PG Morphine Sulfate (Morphine Sulf Inj 10 Mg/Ml Vial) 1 mg IVP Q6HR PRN PRN Reason: PAIN SCALE 7-10 (Severe Stop: 06/09/25 14:20 Ondansetron HCl (Ondansetron Inj 2 Mg/Ml Inj 2 Ml) 4 mg IVP X1 ONE; Protocol Stop: 06/04/25 03:01 Last Admin: 06/04/25 03:10 Dose: 4 mg Documented By: MAISHA Ondansetron HCl (Ondansetron Inj 2 Mg/Ml Inj 2 Ml) 4 mg IVP Q6H PRN; Protocol PRN Reason: NAUSEA OR VOMITING Stop: 07/04/25 14:20 Last Admin: 06/05/25 00:03 Dose: 4 mg Documented By: NIKKI Ondansetron HCl (Ondansetron Inj 2 Mg/Ml Inj 2 Ml) 4 mg IVP Q6HR PRN; Protocol PRN Reason: NAUSEA OR VOMITING Stop: 07/05/25 08:08 Ondansetron HCl (Ondansetron Inj 2 Mg/Ml Inj 2 Ml) Confirm Administered Dose 4 mg .ROUTE .STK-MED ONE Stop: 06/05/25 14:43 Ondansetron HCl (Ondansetron Inj 2 Mg/Ml Inj 2 Ml) 4 mg IVP X1 ONE; Protocol Stop: 06/05/25 15:08 Last Admin: 06/05/25 15:55 Dose: Not Given Documented By: TN Non-Admin Reason: patient not in room Promethazine HCl (Promethazine Inj 25 Mg/Ml Vial) 12.5 mg IV Q30M PRN; Protocol PRN Reason: NAUSEA Stop: 06/05/25 17:08 Propofol (Propofol Inj 10 Mg/Ml Vial 20 Ml) Confirm Administered Dose 400 mg IV .STK-MED ONE Stop: 06/05/25 14:43 Tamsulosin HCl (Tamsulosin Hcl 0.4 Mg Capsule) 0.4 mg PO X1 ONE Stop: 06/04/25 05:23 Last Admin: 06/04/25 05:49 Dose: 0.4 mg Documented By: CAITIE Tamsulosin HCl (Tamsulosin Hcl 0.4 Mg Capsule) 0.4 mg PO QDAY JULIEN Stop: 07/05/25 08:59 Last Admin: 06/06/25 08:49 Dose: 0.4 mg Documented By: Admin: 06/05/25 08:52 Dose: 0.4 mg Documented By: PATIENCE Vancomycin HCl (Vancomycin Inj 500 Mg Vial) Confirm Administered Dose 500 mg .ROUTE .STK-MED ONE Stop: 06/05/25 14:48 See above Consultations Consultation(s) initiated? (list below): Yes Consultation #1 (Physician, Specialty, Details): See MDM Diagnosis Urogenital Male Differential Diagnosis: urinary tract infection, acute retention of urine and other (Renal colic, kidney stone, pyelonephritis, hydronephrosis ) Most likely diagnosis given after review of the tests above:: Symptomatic ureterolithiasis Admission Indicated Admission indicated?: indicated Admission Request Was there a request for admission?: Yes Admission Attestation Admission request attestation: Discussed case with Hospitalist service regarding admission. Discussed patients ED course, exam findings, labs, and radiology results. The Hospitalist [agrees] to accept the patient for admission. Disposition Plan Disposition Plan: Admit Critical Care Time Critical Care Time Critical Care Time: Yes Total Critical Care Time (min.): 40 Attestation: The high probability of sudden, clinically significant deterioration in the patient's condition required the highest level of my preparedness to intervene urgently. The services I provided to this patient were to treat and/or prevent clinically significant deterioration. Services included the following: chart data review, reviewing nursing notes and/or old charts, documentation time, seo consultant collaboration regarding findings and treatment options, medication orders and management, direct patient care, vital sign assessments and ordering, interpreting and reviewing diagnostic studies and lab tests. Aggregate critical care time includes only time during which I was engaged in work directly related to the patient's care, as described above, whether at bedside or elsewhere in the Emergency Department. It did not include time spent performing other reported procedures or the services of residents, students, nurses or physician assistants. Discharge Plan Plan Patient Disposition: Other Care w/in Hosp ([facility]) Patient condition on transfer: Stable Problem List Clinical Impression: Ureterolithiasis
[2025-06-04] MEDS: HYDROmorphone INJ 2 MG/ML VIAL 1 MG IVP (11:17)
--- NOTE | 2025-06-04 14:41 | ESHP_ITS ---
<Statement entered by Edwin Altamirano MD - 06/07/25 15:14> I reviewed above note and agree with findings and plans. I have also personally examined the patient with medicine team and went over assessment and plan with medical team including nutrition intern and resident physician. <Statement entered by Riley Connor MD - 06/04/25 15:13> Senior Resident Attestation: I supervised/discussed management plan with nutrition intern physician Dr. Whittington, and was involved in the care of this patient. I personally saw and examined the patient and discussed the assessment and plan with the entire medicine team, including my attending. I agree with the assessment and plan as documented. Patient is a 24 years old male with PMH of anxiety and asthma presented to the ED due to left flank pain and hematuria. CTAP showed 4 mm stone in left ureter, urology was consulted in the ED and recommended to admit patient for management of intractable pain. He was started on IVF, pain control and Flomax and was admitted for observation. Patient's care was discussed with attending physician, Dr. Altamirano. Riley Connor MD PGY-3. Documentation for date of: 06/04/25 HPI History of Present Illness Chief complaint: Hematuria and left sided flank pain History of present illness: This is a 24 y.o male with past medical history of anxiety and asthma who presents to the emergency department for left flank pain with radiation to LLQ with associated nausea, emesis and hematuria x3 days. Patient states that he has had poor PO intake secondary to nausea and low appetite since his symptoms started. Patient denies any prior history of nephrolithiasis. Patient also reports mild chest discomfort which he attributes it to his anxiety. Patient denies any shortness of breath, dysuria or abdominal pain. ED course: IV bolus NS 1L x1, hydromorphone 1mg x1, Tamsolusin 0.4 x1, Zofran, Toradol 30, and morphine 4 PMH: anxiety, asthma PSH: denies meds: Citalopram, prn propranolol for anxiety attack Allergies: denies FH: grandmother and uncle with nephrolithiasis SH: former smoker quit 10 days ago, opiate and cocaine use in the past Exam Vital Signs Temp Pulse Resp BP Pulse Ox O2 Del Method 98.1 F 70 16 98/70 97 Room Air 06/04/25 08:19 06/04/25 08:19 06/04/25 08:19 06/04/25 08:19 06/04/25 08:19 06/04/25 08:19 Narrative Exam General: WDWN, in no acute distress HEENT: NCAT, MMM, external nose and ear wnl Neck: no thyromegaly. trachea midline CV: RRR with no murmurs or gallops Resp: CTAB, no wheezing, in no respiratory distress Ext: no pretibial edema Abd: abdomen is soft, nondistended, nontender to palpation with no rigidity or peritinic signs : CVA tenderness noted in L side Psych: A&O x3, good affect Results: Labs 06/04/25 04:42 06/04/25 04:42 Labs: Short CBC 06/04/25 Range/Units 04:42 WBC 10.3 (3.8-10.6) Thou/mm3 Hgb 16.3 H (13.5-16.0) g/dL Hct 45.3 (41.0-53.0) % Plt Count 181 (140-440) Thou/mm3 BMP 06/04/25 04:42 Sodium 141 Potassium 4.0 Chloride 105 Carbon Dioxide 23.2 BUN 14 Creatinine 1.4 H Glucose 91 Calcium 9.9 Liver Function 06/04/25 Range/Units 04:42 Total Bilirubin 0.8 (0.3-1.2) mg/dL AST 13 (0-34) U/L ALT 27 (10-49) U/L Alkaline Phosphatase 65 (46-116) U/L Albumin 4.5 (3.5-5.0) gm/dL Urine 06/04/25 Range/Units 05:08 Urine Color [place] A (Lt Yel-Yel) Urine Clarity Turbid A (Clear/Hazy) Urine pH 5.5 (5.0-7.0) Ur Specific [place] 1.028 (1.001-1.035) Urine Protein 2+ A (Neg - Trace) Urine Glucose (UA) Negative (Negative) Quality Measures Quality Measures none Medications Home Medications and Allergies Allergies Allergy/AdvReac Type Severity Reaction Status Date / Time No Known Allergies Allergy Verified 06/04/25 02:38 Visit Medications Acetaminophen (Acetaminophen 325 Mg Tablet) 650 mg PO Q6H PRN PRN Reason: Fever >101.5 Stop: 07/04/25 14:20 Acetaminophen (Acetaminophen 325 Mg Tablet) 650 mg PO Q6H PRN PRN Reason: PAIN SCALE 1-3 (mild Stop: 07/04/25 14:20 Sodium Chloride (Ns) 500 mls @ 999 mls/hr IV .Q31M ONE Stop: 06/04/25 14:50 Sodium Chloride (Ns) 2,000 mls @ 150 mls/hr IV .[id number] JULIEN Stop: 07/04/25 14:29 Morphine Sulfate (Morphine Sulf Inj 10 Mg/Ml Vial) 1 mg IVP Q2H PRN PRN Reason: PAIN SCALE 7-10 (Severe Stop: 06/09/25 14:20 Ondansetron HCl (Ondansetron Inj 2 Mg/Ml Inj 2 Ml) 4 mg IVP Q6H PRN; Protocol PRN Reason: NAUSEA OR VOMITING Stop: 07/04/25 14:20 Discontinued Medications Hydromorphone HCl (Hydromorphone Inj 2 Mg/Ml Vial) 0.5 mg IVP X1 ONE Stop: 06/04/25 11:09 Last Admin: 06/04/25 11:14 Dose: Not Given Hydromorphone HCl (Hydromorphone Inj 2 Mg/Ml Vial) 1 mg IVP X1 ONE Stop: 06/04/25 11:14 Last Admin: 06/04/25 11:17 Dose: 1 mg Sodium Chloride (Ns) 1,000 mls @ 999 mls/hr IV .Q1H1M ONE Stop: 06/04/25 04:01 Last Infusion: 06/04/25 04:25 Dose: Infused Ketorolac Tromethamine (Ketorolac Inj 30 Mg/Ml Vial) 30 mg IVP X1 ONE Stop: 06/04/25 03:01 Last Admin: 06/04/25 03:09 Dose: 30 mg Morphine Sulfate (Morphine Sulf Inj 10 Mg/Ml Vial) 4 mg IVP X1 ONE Stop: 06/04/25 03:01 Last Admin: 06/04/25 03:09 Dose: 4 mg Ondansetron HCl (Ondansetron Inj 2 Mg/Ml Inj 2 Ml) 4 mg IVP X1 ONE; Protocol Stop: 06/04/25 03:01 Last Admin: 06/04/25 03:10 Dose: 4 mg Tamsulosin HCl (Tamsulosin Hcl 0.4 Mg Capsule) 0.4 mg PO X1 ONE Stop: 06/04/25 05:23 Last Admin: 06/04/25 05:49 Dose: 0.4 mg Assessment & Plan Plan 24M with PMH of anxiety and asthma who presents to the ED for left flank pain with radiation to LLQ with associated N/V, poor PO intake, and hematuria x3 days. Patient denies any shortness of breath, fever dysuria or abdominal pain. Admitted for nephrolithiais with hematuria and VIELKA. #Nephrolithiasis #Hematuria #Mild left sided hydronephrosis #VIELKA 3 days of hematuria with N/V and L flank pain. no leukocytosis. Cr 1.4. UA shows hematuria and + for leukocyte esterase. Gross hematuria noted at bedside. CT shows mild left hydronephrosis with a 4mm proximal left ureteral calculus (5mm noted on CT last week). Plan: - Urology Dr. Giles was consulted who recommended admission and IVF - Ordered bolus 500 IVF NS - Ordered maintenance IVF NS 2L at 150ml/hr - Regular diet - CTM renal function and electrolytes - Ordered Flomax 0.4 qday - Zofran prn for nausea - Pain control with tylenol and [place] prn #Anxiety #Asthma Chronic. managed with medications. Plan: - We will resume home meds once med rec is complete Health Maintenance: Dispo: admit to med-surg for observation DVT prophylaxis: SCDs GI prophylaxis: none Code status: Full code Diet: Regular diet Plan of care discussed with attending Dr. Altamirano and senior resident Dr. Connor. Maricarmen Whittington DO PGY1. Disclaimer: This note was dictated by speech recognition. Minor errors in softlines supervisor may be present due to voice recognition software.
[2025-06-04] MEDS: SODIUM CHLORIDE 0.9% 1000 ML 1,000 ML 150 ML IV (16:22)
[2025-06-04 17:29] LABS: Glucose Estimated Average 91 mg/dL (80-131); Hemoglobin A1C 4.8 % Hgb (4.8-6.0)
--- NOTE | 2025-06-04 17:38 | ESCONSULT_ITS ---
RE: JARRED OCONNOR : 2000 DATE OF CONSULTATION: 06/04/2025 CHIEF COMPLAINT: Left-sided abdominal pain with nausea and vomiting and radiating to the left lower abdomen of 3 days' duration. He has 1 episode of gross hematuria. Denies any fever or chills. He came to emergency room twice for the same reason. This patient has past medical history of anxiety, asthma no history of shortness of breath dysuria or abdominal pain The patient is not a smoker. In the past, he had no history of stone disease. He has no history of hypertension, diabetes, heart disease, glaucoma or bleeding diathesis. Past medical history anxiety asthma Social history former smoker quit smoking 10 days ago opiate and cocaine use in the past. VARIOUS MEDICATIONS: He is on: 1. Prednisone 50 mg tablet daily. 2. Alprazolam 0.5 mg daily. 3. Hydrocodone 5 mg/acetaminophen 325 mg tablet q.6 hours p.r.n. for pain. The patient is not at this time experiencing any shortness of breath. He has no history of hypertension, diabetes, heart disease, glaucoma or bleeding diathesis. The patient was in the emergency room 3 days ago and he was sent home on pain medication and he is on tamsulosin 0.4 mg p.o. daily and yet he has not passed a stone. Past medical history, family history, review of the system, personal history, please refer to patient's history form dated 06/04/2025, it is in HPI, in EMR. PHYSICAL EXAMINATION: GENERAL: Condition is satisfactory. The patient is not in acute distress. VITAL SIGNS: Stable. They are in HPI, in EMR. HEENT normocephalic atraumatic Eyes no anemia jaundice neck supple trachea central thyroid is not enlarged extremities reveal no edema cyanosis or clubbing vital signs are stable they are in HPI in EMR chest is symmetrical heart regular rate and rhythm abdomen is soft nontender no masses liver spleen kidney not palpable no CVA tenderness. Various labs WBC is 10.3 Hemoglobin is 16.3 creatinine is 1.4 He had CAT scan of the abdomen and pelvis done on 06/02/2025. This revealed minimum left hydronephrosis due to 5 mm proximal left ureteral calculus. PLAN: 1. Urine for culture and sensitivity. 2. Urine for cytology. 3. Tamsulosin 0.4 mg p.o. daily and recommended enough fluids, so that he has urinary output of 2400 mL in 24 hours. Strain all the urine. The patient is going to be admitted in the hospital for pain management and for hydration. I explained to patient majority of the time this stone can pass, but if he does not pass a stone, then the option is going to be cysto, retrograde ureteroscopy, possible laser stone fragmentation, stent placement or later on ESWL left ureteral stone. Procedure and complications of this were discussed with patient in great detail. Questions were answered to patient's satisfaction. The patient verbalized understanding. He is also going to need a cystoscopic examination because of gross hematuria. Also because of gross hematuria I have recommended him to have a cystoscopic examination for sure. If patient is pain-free he can be discharged home on pain medication and Flomax with advised to drink plenty of fluids strain all the urine and he is recommended to follow-up with me in my office. I also explained to the patient if after discharge she has severe pain nausea vomiting gross hematuria or high fever then it is a emergency she needs to go to the nearest emergency room and of dictation thank you DT: 15:36:09 TT: 17:37:00 Ref: [id number] - TID: [id number] LILIANA
[2025-06-04 17:49] LABS: Troponin I < 0.020 ng/mL (0.0-0.045)
--- NOTE | 2025-06-04 19:05 | PC.NURSE ---
Report received, pt seen resting in bed requesting to shower, provided with supplies by Radha SCHAFFER
--- NOTE | 2025-06-04 19:30 | PC.NURSE ---
Pt done with shower c/o pain will provide pain medication.
[2025-06-04] MEDS: MORPHINE SULF INJ 10 MG/ML VIAL IVP ×3 (19:33→22:38)
[2025-06-04] MEDS: ACETAMINOPHEN 325 MG TABLET 650 MG PO (22:40)
[2025-06-05] VITALS (9 sets, daily range): BP systolic 133–155; BP diastolic 70–88; PULSE 55–84; RESP 16–99; TEMP 36.1–37.2; O2SAT 96–99
[2025-06-05] MEDS: ONDANSETRON INJ 2 MG/ML INJ 2 ML 4 MG IVP (00:03)
[2025-06-05] MEDS: HYDROmorphone INJ 2 MG/ML VIAL 1 MG IVP (00:03)
[2025-06-05] MEDS: SODIUM CHLORIDE 0.9% 1000 ML 1,000 ML 150 ML IV ×3 (00:03→22:19)
[2025-06-05] MEDS: MORPHINE SULF INJ 10 MG/ML VIAL IVP ×4 (01:49→12:18)
[2025-06-05 06:09] LABS: Basophils # (Auto) 0.1 Thou/mm3 (0.0-0.2); Basophils % (Auto) 1 % (0-2.5); Eosinophils # (Auto) 0.1 Thou/mm3 (0.0-0.5); Eosinophils % (Auto) 2 % (0-10); Hematocrit 43.7 % (41.0-53.0); Hemoglobin 15.5 g/dL (13.5-16.0); Immature Granulocytes Auto 0.02 Thou/mm3 (0.00-0.00); Lymphocytes # (Auto) 1.0 Thou/mm3 (1.0-4.8); Lymphocytes % (Auto) 11 % (10-50); Mean Corpuscular HGB Conc 35.5 g/dl (31.0-37.0); Mean Corpuscular Hemoglobin 30.6 pg (25.0-35.0); Mean Corpuscular Volume 86 fL (80-100); Monocytes # (Auto) 0.9 Thou/mm3 (0.0-0.8); Monocytes % (Auto) 10 % (0-12); Neutrophils # (Auto) 6.4 Thou/mm3 (1.8-7.7); Neutrophils % (Auto) 76 % (37-80); Nucleated Red Blood Cell # 0.00 Thou/mm3 (0.00-0.00); Nucleated Red Blood Cell % 0 /100 WBC (0); Platelet Count 160 Thou/mm3 (140-440); RDW Standard Deviation 36.1 fL (35.1-43.9); Red Blood Count 5.07 Miln/mm3 (4.50-5.90); White Blood Count 8.5 Thou/mm3 (3.8-10.6)
[2025-06-05 06:38] LABS: Alanine Aminotransferase 20 U/L (10-49); Albumin, Serum 4.3 gm/dL (3.5-5.0); Albumin/Globulin Ratio 2.0 (1.2-2.2); Alkaline Phosphatase 63 U/L (46-116); Anion Gap 12 (7-16); Aspartate Amino Transferase 11 U/L (0-34); BUN/Creatinine Ratio 10 Ratio (12-20); Bilirubin,Total 1.0 mg/dL (0.3-1.2); Blood Urea Nitrogen 13 mg/dL (9-23); Calcium 9.7 mg/dL (8.3-10.6); Calcium (Corrected) 9.7 mg/dL (8.5-10.1); Carbon Dioxide 25.3 mMol/L (20.0-31.0); Chloride 105 mMol/L (98-107); Creatinine (Component) 1.3 mg/dL (0.6-1.3); Estimated Creatinine Clearance 127.3 mL/min (>60); Globulin 2.1 gm/dL (2.3-3.5); Glucose 79 mg/dL (74-106); Magnesium 1.9 mg/dL (1.6-2.6); Osmolality,Calculated 282 (275-295); Phosphorous 3.8 mg/dL (2.4-5.1); Potassium 4.0 mMol/L (3.4-5.1); Sodium 142 mMol/L (136-145); Total Protein 6.4 gm/dL (5.7-8.2); eGFR > 60 See Note
--- NOTE | 2025-06-05 08:01 | ESPR_ITS ---
<Statement entered by Edwin Altamirano MD - 06/07/25 15:14> I reviewed above note and agree with findings and plans. I have also personally examined the patient with medicine team and went over assessment and plan with medical team including contracts intern and resident physician. <Statement entered by Daron Amador MD - 06/05/25 13:09> Patient was examined and case was reviewed with team including attending physician. Note reviewed, I agree with most of its contents and agree with the patient's care as documented by Dr. Whittington Patient seen today at the bedside found awake, alert, orientedx3. Vitals and labs reviewed. Patient complaining of pain was given Toradol with adequate response. Spoke to urology who will take the patient to the OR today for stent placement. Will continue with IV hydration at this time. Case discussed with my attending Dr. Evelia Amador MD PGY-2 Disclaimer: Despite multiple revisions, due to the dictation software being used, the document bellow may not be free of grammatical errors including phonetic/typographic errors. However, this does not deter from our commitment to providing health care in the patient's best interest in mind. Documentation for date of: 06/05/25 Subjective Subjective Interval history: 06/05/25: Overnight, patient complained of increased pain, dilaudid and morphine were given with good resolution of symptoms. Patient remains afebrile with stable vital signs. Patient complained of pain that was not relived by scheduled morphin. Toradol was provided with great relief of symptoms. Patient was seen by Urology, Tisha Manzo, this morning and had an extensive discussion about risks and benefits of alternative plans. Patient agreed with the proposed retrograde urethrogram with cystoscopy and stent placement. Patient will most likely need to have lithotripsy done there after. Exam Vital Signs Temp Pulse Resp BP Pulse Ox O2 Del Method 98.0 F 57 L 16 136/70 H 97 Room Air 06/05/25 04:00 06/05/25 04:00 06/05/25 04:00 06/05/25 04:00 06/05/25 04:00 06/05/25 04:00 Narrative Exam General: WDWN, distressed secondary to pain which was relieved by toradol HEENT: NCAT, MMM, external nose and ear wnl Neck: no thyromegaly. trachea midline CV: RRR with no murmurs or gallops Resp: CTAB, no wheezing, in no respiratory distress Ext: no pretibial edema Abd: abdomen is soft, nondistended, nontender to palpation with no rigidity or peritinic signs : CVA tenderness noted in L side Psych: A&O x3, good affect Objective Labs 06/05/25 04:07 06/05/25 04:07 Labs: Laboratory Results - last 24 hr 06/04/25 06/05/25 16:29 04:07 WBC 8.5 RBC 5.07 Hgb 15.5 Hct 43.7 MCV 86 MCH 30.6 MCHC 35.5 RDW Std Deviation 36.1 Plt Count 160 Neut % (Auto) 76 Lymph % (Auto) 11 [place] % (Auto) 10 Eos % (Auto) 2 Baso % (Auto) 1 Neut # (Auto) 6.4 Lymph # (Auto) 1.0 [place] # (Auto) 0.9 H Eos # (Auto) 0.1 Baso # (Auto) 0.1 Immature Gran # (Auto) 0.02 H Absolute Nucleated RBC 0.00 Immature Gran % 0 Nucleated RBC % 0 Sodium 142 Potassium 4.0 Chloride 105 Carbon Dioxide 25.3 Anion Gap 12 BUN 13 Creatinine 1.3 Estim Creat Clear Calc 127.3 eGFR > 60 BUN/Creatinine Ratio 10 L Glucose [address] Glu mg/dL 91 Hemoglobin A1c 4.8 Calculated Osmolality 282 Calcium 9.7 Corrected Calcium 9.7 Phosphorus 3.8 Magnesium 1.9 Total Bilirubin 1.0 AST 11 ALT 20 Alkaline Phosphatase 63 Troponin I < 0.020 Total Protein 6.4 Albumin 4.3 Globulin 2.1 L Albumin/Globulin Ratio 2.0 Quality Measures Quality Measures none Assessment & Plan Assessment Current Active Medications: Generic Name Dose Route Start Last Admin Trade Name Freq PRN Reason Stop Dose Admin Acetaminophen 650 mg 06/04/25 14:21 Acetaminophen 325 Mg Tablet PO 07/04/25 14:20 Q6H PRN Fever >101.5 Acetaminophen 650 mg 06/04/25 14:21 06/04/25 22:40 Acetaminophen 325 Mg Tablet PO 07/04/25 14:20 650 mg Q6H PRN Administration PAIN SCALE 1-3 (mild Citalopram Hydrobromide 20 mg 06/05/25 09:00 Citalopram 20 Mg Tablet PO 07/05/25 08:59 QDAY JULIEN Magnesium Sulfate 2 gm in 50 mls @ 25 mls/hr 06/05/25 07:32 Magnesium Sulfate Ivpb IV 06/05/25 09:31 X1 ONE Sodium Chloride 1,000 mls @ 150 mls/hr 06/05/25 07:39 Ns IV 07/05/25 07:38 .Q6H40M JULIEN Morphine Sulfate 1 mg 06/04/25 14:21 06/05/25 07:30 Morphine Sulf Inj 10 Mg/Ml Vial IVP 06/09/25 14:20 1 mg Q2H PRN Administration PAIN SCALE 7-10 (Severe Tamsulosin HCl 0.4 mg 06/05/25 09:00 Tamsulosin Hcl 0.4 Mg Capsule PO 07/05/25 08:59 QDAY JULIEN Plan 24M with PMH of anxiety and asthma who presents to the ED for left flank pain with radiation to LLQ with associated N/V, poor PO intake, and hematuria x3 days. Patient denies any shortness of breath, fever dysuria or abdominal pain. Admitted for nephrolithiais with hematuria and VIELKA. #Nephrolithiasis #Hematuria #Mild left sided hydronephrosis #VIELKA 3 days of hematuria with N/V and L flank pain. no leukocytosis. Cr 1.4 -->1.3. BUN 14-->13 UA shows hematuria and + for leukocyte esterase. Gross hematuria noted at bedside. CT shows mild left hydronephrosis with a 4mm proximal left ureteral calculus (5mm noted on CT last week). Urology Dr. Giles was consulted who recommended admission and IVF. This morning, patient was seen and evaluated by Dr. Giles who had an extensive discussion about risks and benefits of alternative plans. Patient agreed with the proposed retrograde urethrogram with cystoscopy and stent placement. Patient will most likely need to have lithotripsy done there after. Plan: - Retrograde urethrogram with cystoscopy and stent placement with Dr. Giles later today - Continue maintenance IVF NS at 150ml/hr - NPO - CTM renal function and electrolytes - Continue Flomax 0.4 qday - Pain control with tylenol and morphin prn and Toradol prn - Strict I&O - Urine output to be at 2400 q24hr - Strain Urine for calculus - Pending urine culture - Pending urine cytology - Patient will need to follow up with Urology outpatient upon discharge #Anxiety #Asthma Chronic. managed with medications. Plan: - Resume home Citalopram Health Maintenance: Dispo: admit to med-surg for observation DVT prophylaxis: SCDs GI prophylaxis: none Code status: Full code Diet: Regular diet Plan of care discussed with attending Dr. Altamirano and senior resident Dr. Abernathy. Maricarmen Whittington DO PGY1.
[2025-06-05] MEDS: CITALOPRAM 20 MG TABLET PO (08:52)
[2025-06-05] MEDS: Magnesium Sulfate 2 GM Ivpb 2 GM/50 ML BAG IV (08:52)
[2025-06-05] MEDS: KETOROLAC INJ 30 MG/ML VIAL IVP ×2 (08:52→22:19)
[2025-06-05] MEDS: TAMSULOSIN HCL 0.4 MG CAPSULE PO (08:52)
--- NOTE | 2025-06-05 11:41 | PC.SS ---
Patient Gabriel Chin is a 24 Year old male admitted for Nephrolithiasis. SS met with patient at bedside to discuss discharge plan and verify demographic information. Patient reports he lives at home with roomettes. Patient has listed his mother Jazmine Cardoza as his medical decision maker, [phone]. Patient does not utilize any source of DME to assist with ambulation. Choice of pharmacy is [facility]. PCP is Americo Amador. At time of discharge the patient wishes to return back home, family will provide transportation. Next of kin: Mother, Jazmine Cardoza Discharge Plan: Home
--- NOTE | 2025-06-05 15:21 | PC.SS ---
SS follow up note; urology will take patient to OR today for stent placement. Patient will discharge home when medically cleared.
[2025-06-05] MEDS: ACETAMINOPHEN 325 MG TABLET 650 MG PO (17:43)
[2025-06-05] MEDS: MELATONIN 3 MG TABLET 6 MG PO (22:19)
[2025-06-06] VITALS: BP 142/60; PULSE 58; RESP 20; TEMP 36.8; O2SAT 96
--- NOTE | 2025-06-06 00:30 | ESPR_ITS ---
RE: JARRED OCONNOR : 2000 DATE OF SERVICE: 06/05/2025 DATE OF NOTE: 06/05/2025 at 3.30 p.m. This is a 24-year-old gentleman. This patient has a history of anxiety, asthma, and left flank pain. He had a 4.5 to 5 mm stone in the left proximal ureter with minimal hydronephrosis. The patient has one episode of gross hematuria. The patient was scheduled for a cysto retrograde ureteroscopy, possible stent placement. In the Flex care, I talked to the patient. He is pain-free today. I discussed the procedure and associated complications including anesthetic complication and discomfort after placement of the stent with the patient in great detail. The patient decided since he is asymptomatic at this time to give a chance for stone to pass. He is going to be discharged home on pain medication and Flomax 0.4 mg p.o. daily. I did explain to the patient that if he has a recurrence of severe pain with nausea, vomiting, gross hematuria, high fever, then it is an emergency. He has to go to the nearest emergency room or get in touch with me and I also explained to him because he had a gross hematuria, he needs to have a cystoscopic examination done. The patient understood it very well. My RN Ofelia was my can reconditioner and the patient is going to be discharged home by hospitalist on pain medication and Flomax. DT: 15:35:32 TT: 16:28:00 Ref: [id number] - TID: [id number] MTDSuzan
[2025-06-06 04:00] VITALS: BP 147/72; PULSE 52; RESP 16; TEMP 36.6; O2SAT 97
[2025-06-06] MEDS: SODIUM CHLORIDE 0.9% 1000 ML 1,000 ML 150 ML IV (05:14)
[2025-06-06 06:17] LABS: Basophils # (Auto) 0.0 Thou/mm3 (0.0-0.2); Basophils % (Auto) 1 % (0-2.5); Eosinophils # (Auto) 0.3 Thou/mm3 (0.0-0.5); Eosinophils % (Auto) 4 % (0-10); Hematocrit 43.6 % (41.0-53.0); Hemoglobin 15.5 g/dL (13.5-16.0); Immature Granulocytes Auto 0.02 Thou/mm3 (0.00-0.00); Lymphocytes # (Auto) 1.7 Thou/mm3 (1.0-4.8); Lymphocytes % (Auto) 27 % (10-50); Mean Corpuscular HGB Conc 35.6 g/dl (31.0-37.0); Mean Corpuscular Hemoglobin 30.6 pg (25.0-35.0); Mean Corpuscular Volume 86 fL (80-100); Monocytes # (Auto) 0.7 Thou/mm3 (0.0-0.8); Monocytes % (Auto) 11 % (0-12); Neutrophils # (Auto) 3.5 Thou/mm3 (1.8-7.7); Neutrophils % (Auto) 57 % (37-80); Nucleated Red Blood Cell # 0.00 Thou/mm3 (0.00-0.00); Nucleated Red Blood Cell % 0 /100 WBC (0); Platelet Count 155 Thou/mm3 (140-440); RDW Standard Deviation 36.4 fL (35.1-43.9); Red Blood Count 5.07 Miln/mm3 (4.50-5.90); White Blood Count 6.2 Thou/mm3 (3.8-10.6)
[2025-06-06 06:31] LABS: Alanine Aminotransferase 18 U/L (10-49); Albumin, Serum 4.1 gm/dL (3.5-5.0); Albumin/Globulin Ratio 2.0 (1.2-2.2); Alkaline Phosphatase 62 U/L (46-116); Anion Gap 12 (7-16); Aspartate Amino Transferase 13 U/L (0-34); BUN/Creatinine Ratio 6 Ratio (12-20); Bilirubin,Total 1.0 mg/dL (0.3-1.2); Blood Urea Nitrogen 10 mg/dL (9-23); Calcium 9.8 mg/dL (8.3-10.6); Calcium (Corrected) 9.8 mg/dL (8.5-10.1); Carbon Dioxide 26.4 mMol/L (20.0-31.0); Chloride 105 mMol/L (98-107); Creatinine (Component) 1.6 mg/dL (0.6-1.3); Estimated Creatinine Clearance 103.4 mL/min (>60); Globulin 2.1 gm/dL (2.3-3.5); Glucose 81 mg/dL (74-106); Magnesium 2.0 mg/dL (1.6-2.6); Osmolality,Calculated 282 (275-295); Phosphorous 3.8 mg/dL (2.4-5.1); Potassium 4.3 mMol/L (3.4-5.1); Sodium 143 mMol/L (136-145); Total Protein 6.2 gm/dL (5.7-8.2); eGFR > 60 See Note
[2025-06-06] MEDS: ACETAMINOPHEN 325 MG TABLET 650 MG PO (06:52)
[2025-06-06 07:38] VITALS: BP 130/68; PULSE 52; RESP 16; TEMP 36.3; O2SAT 97
--- NOTE | 2025-06-06 08:26 | ESDS_ITS ---
<Statement entered by Edwin Altamirano MD - 06/18/25 08:44> I reviewed above note and agree with findings and plans. I have also personally examined the patient with medicine team and went over assessment and plan with medical team including photo intern and resident physician. <Statement entered by Daron Amador MD - 06/06/25 17:40> Patient was examined and case was reviewed with team including attending physician. Note reviewed, I agree with most of its contents and agree with the patient's care. Daron Amador MD PGY-2 Planned Discharge Date 06/06/25 DS: Providers Provider Date of admission: 06/04/25 14:21 Primary care physician: Americo Amador MD Admitting Provider: Edwin Altamirano MD Attending Provider on Admission: Edwin Altamirano MD Attending Provider on DC: Dr. Altamirano Discharging Provider: Resident Steve Anticipated date of discharge: 06/06/25 DS: Diagnosis Problem List Completed Was Problem List Reviewed/Reconciled?: Yes Hospital Course Hospital Course Hospital course: 24M with PMH of anxiety and asthma who presented to the ED for left flank pain with radiation to LLQ with associated N/V, poor PO intake, and hematuria x3 days. Patient denied any shortness of breath, fever dysuria or abdominal pain. Admitted for nephrolithiais with hematuria and VIELKA. On admission, no leukocytosis was noted. Cr was noted to be at 1.3. Gross hematuria noted in the ED, however resolved the next day. CT shows mild left hydronephrosis with a 4mm proximal left ureteral calculus (5mm noted on CT last week). Urology Dr. Giles was consulted who recommended admission and IVF. Patient was evaluated initially by Dr. Giles who had an extensive discussion about risks and benefits of alternative plans. Patient agreed with the proposed retrograde urethrogram with cystoscopy and stent placement; however, given improvement of patient's symptoms later that day, he decided to wait for the stone to pass on its own with pain control, hydration and flomax. Patient initially had extreme pain which was refractory to morphine, dilaudid and norco. Patient's pain responded well to Toradol. On 2nd day of hospitalizations, patient reported moderate improvement of his pain and resolution of hematuria. Patient was noted to have elevated Cr of 1.6 from 1.4 on admission which is most likely due to NSAID use. Patient will be discharged with prescription for pain medication and Flomax and will need to follow up with Urology outpatient if still symptomatic. It was explained to patient that if he has a recurrence of severe pain with na usea, vomiting, gross hematuria, high fever, then it is an emergency and he has to go to the nearest emergency room or get in touch with Dr. Giles. Patient will also need to complete a cystoscopic examination outpatient upon discharge for gross hematuria. At the time of discharge, patient is in stable condition with stable vital signs. Patient presenting symptoms improved and adequate pain control was achieved. Patient will need to repeat kidney function in 2-3 days upon discharge. All questions answered and ED return precautions given. #Nephrolithiasis #Hematuria #Mild left sided hydronephrosis #VIELKA #Anxiety #Asthma Follow up with primary care physician within 1 week of discharge Follow up with Urology within 2 weeks of discharge in regards to lithotripsy pr ocedure Have your PCP repeat a renal panel in 2-3 days to monitor kidney function. You have been prescribed tamsulosin to dilate your prostatic urethra to help pass your stone. Drink plenty of fluids to help with passing the stone. Should symptoms recur or worsen patient is instructed to return to the ED. Plan of care discussed with attending Dr. Altamirano and senior resident Dr. Abernathy. Maricarmen Whittington DO PGY1. Status at Discharge Functional status at discharge: independent ambulation Overall status at discharge: patient is back to baseline Time Spent with Patient Time attestation: Total time spent providing and/or coordinating discharge services: Time spent: Greater than 30 minutes Exam Vital Signs Temp Pulse Resp BP Pulse Ox O2 Del Method 97.3 F 52 L 16 130/68 97 Room Air 06/06/25 07:38 06/06/25 07:38 06/06/25 07:38 06/06/25 07:38 06/06/25 07:38 06/06/25 07:38 Narrative Exam General: WDWN, in no acute distress HEENT: NCAT, MMM, external nose and ear wnl Neck: no thyromegaly. trachea midline CV: RRR with no murmurs or gallops Resp: CTAB, no wheezing, in no respiratory distress Ext: no pretibial edema Abd: abdomen is soft, nondistended, nontender to palpation with no rigidity or peritinic signs : CVA tenderness noted in L side (Resolved) Psych: A&O x3, good affect Discharge Plan Plan Patient Disposition: HOME (Self Care) Patient condition on transfer: Stable Care Plan Goals: Follow up with primary care physician within 1 week of dischrge Follow up with Urology within 2 weeks of discharge in regards to lithtrypsy procedure Have your PCP repeat a renal panel in 1 week to monitor kidney function. You have been prescribed tamsulosin to dilate your prostatic urethra to help pass your stone. Drink plenty of fluids to help with passing the stone. Should symptoms recur or worsen patient is instructed to return to the ED. Prescriptions/Referrals Prescriptions/Med Rec: New tamsulosin [Flomax] 0.4 mg capsule 0.4 mg PO QDAY Qty: 30 0RF hydrocodone-acetaminophen 7.5-325 mg tablet 1 tab PO Q8H MDD 3 PRN (Reason: pain) Qty: 15 0RF Continued ibuprofen 600 mg tablet 600 mg PO Q6H PRN (Reason: Renal colic) 5 Days Qty: 20 0RF Rx Instructions: Patient no longer takes prednisone hydrocodone-acetaminophen 5-325 mg tablet 1 tab PO Q6H MDD 4 tabs PRN (Reason: pain) Qty: 10 0RF citalopram 20 mg tablet 20 mg PO QDAY Patient Comments: TAKE 1 TABLET BY MOUTH EVERY DAY Discontinued prednisone 50 mg tablet 50 mg PO QDAY Qty: 5 0RF alprazolam [Xanax] 0.5 mg tablet 0.5 mg PO BID PRN (Reason: anxiety) Qty: 10 0RF Referrals: Americo Amador MD [Primary Care Provider] - Patient/Caregiver Discharge Instructions Education Materials: Hematuria: Possible Causes, Understanding Kidney Stones, Identifying Kidney Stones, Preventing Kidney Stones Print Language: Persian Stand Alone Forms: Theresa Award Info., Patient Portal Info Letter, Work/Release Restrictions Discharge Order Discharge Orders: Discharge (Routine); Ordered 06/06/25 Ordered By: Daron Amador Quality Discharge Quality Measures VTE prophylaxis
[2025-06-06] MEDS: CITALOPRAM 20 MG TABLET PO (08:49)
[2025-06-06] MEDS: TAMSULOSIN HCL 0.4 MG CAPSULE PO (08:49)
[2025-06-06 11:19] VITALS: PULSE 61; RESP 18; RESP 98; O2SAT 98
[2025-06-06 12:00] VITALS: BP 142/68; PULSE 67; RESP 18; TEMP 36.4; O2SAT 98
[2025-06-06 12:06] LABS: Anion Gap 9 (7-16); BUN/Creatinine Ratio 6 Ratio (12-20); Blood Urea Nitrogen 10 mg/dL (9-23); Calcium 9.6 mg/dL (8.3-10.6); Carbon Dioxide 26.5 mMol/L (20.0-31.0); Chloride 106 mMol/L (98-107); Creatinine (Component) 1.6 mg/dL (0.6-1.3); Estimated Creatinine Clearance 103.4 mL/min (>60); Glucose 90 mg/dL (74-106); Osmolality,Calculated 280 (275-295); Potassium 4.8 mMol/L (3.4-5.1); Sodium 141 mMol/L (136-145); eGFR > 60 See Note
--- NOTE | 2025-06-14 12:16 | ESCONSULT_ITS ---
RE: JARRED OCONNOR : 2000 DATE OF CONSULTATION: 06/05/2025 CHIEF COMPLAINT: This is a 24-year-old gentleman. He has past medical history of anxiety and asthma. He came to the emergency room with a history of left lower quadrant pain associated with nausea, vomiting, and hematuria of 3 days duration. HISTORY OF PRESENT ILLNESS: The patient was started on pain medication and Flomax 0.4 mg p.o. daily. The patient has no prior history of nephrolithiasis. He does have a family history of bladder cancers. He had gross hematuria for the last 3 days. He had CAT scan of the abdomen and pelvis done. This revealed a 5 mm stone proximal ureteral left side. I had long discussions with the patient regarding observation, drinking plenty of fluid, strain all the urine, urine for cytology, urine cultures. The patient had been to the emergency room twice and this morning, he still complains of severe pain on the left side. I gave him the options of cystoscopic examination, left retrograde pyelogram, possible ureteroscopy, possible laser stone fragmentation. If ureter is not accommodating, then he will have a placement of the stent. Procedure and complications of this were discussed with the patient in great detail. If he has a placement of the stent, then he may need ESWL of proximal left ureteral stone. The patient had multiple questions and I was unable to answer all those questions to his satisfaction. His BUN is 14, creatinine is 1.4. The patient is going to be n.p.o. this morning and he will be scheduled for the above procedure. DT: 10:11:15 TT: 11:21:00 Ref: [id number] - TID: [id number]
== END 2025-06-06 14:44 | disposition home or self-care (01) ==
LOC: SERX 14:19 → SERHOLD 14:53 → S3SX 15:50
PROVIDERS: Nurse Practitioner Family; Admitting Provider Internal Medicine; Emergency Provider Emergency Medicine; PCP Family Medicine; Visit Provider Internal Medicine
DX: N13.2 Hydronephrosis with renal and ureteral calculous obstruction (principal); N17.9 Acute kidney failure, unspecified; F41.9 Anxiety disorder, unspecified; J45.909 Unspecified asthma, uncomplicated; R31.0 Gross hematuria
CPT/HCPCS: 36415; 74176; 80048; 80053; 81001; 83036; 83735; 84100; 84484; 85025; 87086; 96361; 96374; 96375; 96376; 99284; A4649; G0378; J1100; J1171; J1580; J1885; J2250; J2270; J2405; J2704; J3010; J3371; J3475; J3490; J7030; A9270